=== PATIENT | female | born 1980 | race Caucasian/White ===

== ENCOUNTER 2021-02-19 05:55 | Day surgery (SDC) | payer BC ==
[~2021-02-19] VITALS: Ht 152.4 cm; Wt 90.0 kg
[~2021-02-19 05:55] MED LIST: AMLODIPINE BESYL5 MG PO; CALCOR TABLET1 EACH PO; ESTRACE2 MG PO; FAMOTIDINE20 MG PO; MACRODANTIN50 MG PO; MULTI-VITAMIN1 EACH PO; PROGESTERONE200 MG PO; REMICADE100 MG/10 IV
--- NOTE | 2021-02-19 08:05 | NUR ---
PT IS ALERT, ORIENTED AND HER IS WAITING IN VEHICLE IN PARKING LOT WORKING REMOTELY. PT SEEMS INFORMED, ALL QUESTIONS ASKED ANSWERED. PT DID REQUEST PRAYER, WILL FOLLOW NEEDED
--- NOTE | 2021-02-19 09:15 | NUR ---
02/19/21 0915 Sheets,Ilene 0906 PT ARRIVED TO PACU ON 6L VIA MASK, PT WAKES TO TACTILE STIMULI AND IS REORIENTED TO PACU. VSS. RN ENCOURAGED DEEP BREATHING. PT DENIES PAIN AND NAUSEA. 0912 O2 REMOVED HOB INCREASED. 0914 MD AT BEDSIDE AND PT REPORTS 4/10 CRAMPING PAIN. TOLERBALE AT THIS TIME.
--- NOTE | 2021-02-20 15:32 | PATH ---
[facility] [address] [place], [place] [address] Signed SPECIMEN(S): A ENDOMETRIAL POLYPS SPECIMEN SOURCE: A. ENDOMETRIAL POLYPS CLINICAL HISTORY: Hysteroscopy with resection of endo. polyp. Postmenopausal bleeding; endometrial polyp. FINAL PATHOLOGIC DIAGNOSIS: Endometrium, polyps, resection: - Fragments of proliferative endometrium, some with features of benign endometrial polyp(s). - Fragments of myometrium with no histopathologic abnormality. - Negative for atypical hyperplasia or malignancy. NAL:cml:C2NR MICROSCOPIC EXAMINATION: Histologic sections of all submitted blocks are examined by light microscopy. These findings, together with the gross examination, support the pathologic diagnosis. GROSS DESCRIPTION: The specimen, labeled "KL, endometrial polyps," is received in formalin and consists of irregular shaped, pink-ibarra, membranous tissue fragments that aggregate measure 3.0 x 2.1 x 0.2 cm. Specimen is entirely submitted in cassette (A1). JS (under the direct supervision of a pathologist) The Gross Description was prepared using a voice recognition system. The report was reviewed for accuracy; however, sound-alike word errors, addition and/or deletions may occur. If there is any question about this report, please contact Client Services. PERFORMING LABORATORY: The technical component was performed by [facility], [address] [place] [address] (Ergonomics Consultant: Shelbi Zimmerman MD; CLIA# [id number]). [facility], [address] [address] (CLIA# [id number]). Diagnostician: Megha Mckeon MD PATIENT NAME: JENNA PALACIO PATHOLOGY DATE OF : [birth year] REPORT #: [id number] PHYSICIAN: [facility] PCP: NAMRATA HEATH MD REPORT IS CONFIDENTIAL AND NOT TO BE RELEASED WITHOUT AUTHORIZATION [address] [place], [place] [address] Signed Pathologist Electronically Signed 02/20/2021 Copies: ~ PATIENT NAME: JENNA PALACIO PATHOLOGY DATE OF : [birth year] REPORT #: [id number] PHYSICIAN: [facility] PATHOLOG[facility] PCP: NAMRATA HEATH MD REPORT IS CONFIDENTIAL AND NOT TO BE RELEASED WITHOUT AUTHORIZATION
--- NOTE | 2021-03-08 14:38 | OR ---
[facility] [address] [place], [place] [address] Signed DATE OF OPERATION: 02/19/2021 SURGEON: Anabel Hart MD PREOPERATIVE DIAGNOSIS: Postmenopausal bleeding, endometrial polyps. POSTOPERATIVE DIAGNOSIS: Postmenopausal bleeding, endometrial polyps. PROCEDURE: Hysteroscopy, resection of polyps. ANESTHESIA: MAC. ESTIMATED BLOOD LOSS: Minimal. DRAINS: None. INDICATIONS AND FINDINGS: The patient is a 40-year-old female, 3, para 2, ectopic 1, who has been on hormone replacement after premature menopause. She had been doing well, but recently had been having abnormal bleeding despite the same regimen. Ultrasound revealed probable endometrial polyps. At the time of surgery, exam under anesthesia revealed a normal-size uterus. Cavity sounded to 10 cm. The cavity had polyps of the posterior fundus as well as the left low fundus. DESCRIPTION OF PROCEDURE: The patient was prepped and draped in the dorsal lithotomy position. A weighted speculum was placed and the anterior lip of the cervix was visualized and grasped with a single-tooth tenaculum. The cavity was then sounded to 10 cm. The endocervical canal was then dilated to an #8 dilator. The MyoSure device was then placed and the cavity evaluated. The polyps were identified and the MyoSure Lite introduced. This was used to resect the fundal polyps both posteriorly in the left lower aspect. The remaining cavity appeared normal. Following this, the procedure was complete and the instruments withdrawn. The tenaculum was removed. There was no evidence of any ongoing bleeding from the tenaculum site. The patient was taken to the recovery room in good condition. Electronically Signed By: ANABEL HART MD 03/08/21 1438 PATIENT NAME: JENNA PALACIO OPERATIVE REPORT DATE OF : [birth year] REPORT #: [id number] PHYSICIAN: ANABEL HART MD PCP: NAMRATA BAE MD REPORT IS CONFIDENTIAL AND NOT TO BE RELEASED WITHOUT AUTHORIZATION [address] [place], [place] [address] Signed All sponge and needle counts were correct. Anabel Hart MD PJW/MODL /[id number] cc: Dr. Bae Copies: ~ Electronically Signed By: ANABEL HART MD 03/08/21 1438 PATIENT NAME: JENNA PALACIO OPERATIVE REPORT DATE OF : [birth year] REPORT #: [id number] PHYSICIAN: ANABEL HART MD PCP: NAMRATA BAE MD REPORT IS CONFIDENTIAL AND NOT TO BE RELEASED WITHOUT AUTHORIZATION
== END 2021-02-19 10:00 | disposition home or self-care (01) ==
LOC: DS 05:55
PROVIDERS: ATTEND Obstetrics & Gynecology
PROC: 0UB98ZZ Excision of Uterus, Via Natural or Artificial Opening Endoscopic (ICD-10-PCS; principal; 2021-02-19 08:30)
DX: N84.0 Polyp of corpus uteri (principal); N95.0 Postmenopausal bleeding; I10 Essential (primary) hypertension; K21.9 Gastro-esophageal reflux disease without esophagitis; K50.90 Crohn's disease, unspecified, without complications; E66.9 Obesity, unspecified; Z68.38 Body mass index [BMI] 38.0-38.9, adult; Z20.822 Contact with and (suspected) exposure to COVID-19; Z87.891 Personal history of nicotine dependence
CPT/HCPCS: 00952; C9803; J1885; J2704; J2765; J7121; U0003

== ENCOUNTER 2022-12-02 08:35 | Day surgery (SDC) | payer OTHER ==
[2022-11-23 14:25] VITALS: BP 146/99
[~2022-12-02] VITALS: Ht 152.4 cm; Wt 87.0 kg
--- NOTE | ~2022-12-02 | OR ---
[facility] [address] [place], [place] [address] Draft DATE OF OPERATION: 12/02/2022 SURGEON: Anabel Hart MD PREOPERATIVE DIAGNOSIS: Postmenopausal bleeding. POSTOPERATIVE DIAGNOSIS: Postmenopausal bleeding, pending pathology. PROCEDURE: Hysteroscopy, resection of thickened endometrium. ANESTHESIA: General LMA. ESTIMATED BLOOD LOSS: Minimal. DRAINS: None. INDICATIONS AND FINDINGS: The patient is a 42-year-old female who underwent premature menopause. She has been on hormone replacement therapy and despite several manipulations, she has continued to have quite abnormal bleeding. Ultrasound did show a thickened endometrial stripe. She is now scheduled for hysteroscopy for evaluation. At the time of surgery, exam under anesthesia was normal. The cervix was a little stenotic. The uterus sounded to 11 cm. The majority of the cavity appeared benign, but there was some thickening both anteriorly as well as posteriorly. DESCRIPTION OF PROCEDURE: The patient was prepped and draped in the dorsal lithotomy position. A weighted speculum was placed. The anterior lip of the cervix was visualized and grasped with single-tooth tenaculum. The cavity was sounded to 11 cm. The endocervical canal was then dilated with some difficulty to a #8 dilator. The MyoSure device was then placed. The evaluation of the cavity was done and the MyoSure Lite was then introduced. This was used to resect the thickened areas both anteriorly and posteriorly in the fundus. There were no distinct polypoid fragments. Following this, there was no evidence of any active bleeding. The procedure was terminated. The instruments removed. There was PATIENT NAME: JENNA PALACIO OPERATIVE REPORT DATE OF : [birth year] REPORT #: [id number] PHYSICIAN: ANABEL HART MD PCP: NAMRATA HEATH MD REPORT IS CONFIDENTIAL AND NOT TO BE RELEASED WITHOUT AUTHORIZATION [facility] [address] [place] [id number] Draft some tearing of the anterior cervix from the tenaculum and this was repaired with a figure-of- eight suture of 0 chromic. All sponge and needle counts were correct. She was taken to the recovery room in good condition. MD NICOLLE Daugherty/MOLINA /[id number] Copies: ~ PATIENT NAME: JENNA PALACIO OPERATIVE REPORT DATE OF : [birth year] REPORT #: [id number] PHYSICIAN: ANABEL HART MD PCP: NAMRATA HEATH MD REPORT IS CONFIDENTIAL AND NOT TO BE RELEASED WITHOUT AUTHORIZATION
[~2022-12-02 08:35] MED LIST changes: +AZATHIOPRINE50 MG PO
[2022-12-02 09:04] VITALS: BP 143/89
--- NOTE | 2022-12-02 12:15 | NUR ---
12/02/22 1215 Irina Garsia 1211 PATIENT ARRIVES TO PACU UNRESPONSIVE TO PAIN. ORAL AIRWAY IN PLACE AND RN HOLDING JAW THRUST TO MAINTAIN PATENT AIRWAY. RESP EVEN AND UNLABORED WITH INTERVENTION, MASK AT 10 LITERS.
[2022-12-02 12:50] VITALS: BP 136/74
--- NOTE | 2022-12-02 13:01 | NUR ---
1250: PT ARRIVES BACK TO DS RM 12 VIA STRETCHER FROM PACU AWAKE. PT STATES URGE TO VOID AND ASSISTED TO BATHROOM WITH 2 RN AND FAMILY MEMBER. PT MISSES HAT PLACED IN TOILET AND VOIDS QS LIGHT PINK URINE WITH NO CLOTS PRESENT. PT PROVIDED PERIPAD AND MESH PANTIES. BACK TO DS RM 12 IN STRETCHER WITH AMY HUGGER PLACED ON WARM. CONT PULSE OXIMETER IN PLACE WITH FAMILY AT BEDSIDE AND CALL LIGHT WITHIN REACH. DC CRITERIA EXPLAINED TO PT WITH WATER AT BEDSIDE, PT DENIES ANYTHING TO EAT AT THIS TIME.
[2022-12-02] MEDS ORDERED: MOTRIN IB200 MG PO (13:18)
[2022-12-02] MEDS ORDERED: HYDROCODON-ACE1 EA10 PO (13:19)
[2022-12-02 13:50] VITALS: BP 134/84
--- NOTE | 2022-12-02 14:26 | NUR ---
1350: PT WAKES WHEN THIS RN ENTERS THE ROOM. VSS, RESP EVEN AND UNLABORED ON RA. REPORTS DESIRE TO DC. DENIES PAIN AND NAUSEA. NO DRAINAGE NOTED ON PERIPAD AT THIS TIME. TO DRESS INDEPENDENTLY FOR DC. 1415: SL REMOVED WITH CATH TIP INTACT AND PRESSURE APPLIED TO SITE, WNL. DC INSTRUCTIONS PROVIDED ORDERED. PT VOICES UNDERSTANDING AND DENIES QUESTIONS AND CONCERNS. WHEELED OFF OF WC BY THIS RN. TRANSFERS INTO VEHICLE INDEP AND APPROPRIATELY. NO PHYSICAL S/S OF DISTRESS AT THIS TIME
--- NOTE | 2022-12-04 12:24 | PATH ---
[facility] [address] [place], [place] [address] Signed SPECIMEN(S): A ENDOMETRIAL CURETTINGS SPECIMEN SOURCE: A. ENDOMETRIAL CURETTINGS CLINICAL HISTORY: Postmenopausal bleeding. Hysteroscopy DC. FINAL PATHOLOGIC DIAGNOSIS: Endometrial curettings: - Weakly proliferative endometrium, negative for hyperplasia or atypia. - Fragments of myometrium with intermixed endometrium. (See Comment) COMMENT: The fragments of myometrium with intermixed endometrium raise the consideration of adenomyosis, although definitive diagnosis on a curettage is limited. Clinical correlation is requested. JVR:[facility]:C2NR MICROSCOPIC EXAMINATION: Histologic sections of all submitted blocks are examined by light microscopy. These findings, together with the gross examination, support the pathologic diagnosis. GROSS DESCRIPTION: The specimen, labeled and designated "Raul, endometrial curettings," is received in formalin and consists of multiple fragments of white-ibarra to red-brown soft tissue (2.8 x 1.5 x 0.5 cm in aggregate). The specimen is submitted entirely in cassette (A1). VB (under the direct supervision of a pathologist) The Gross Description was prepared using a voice recognition system. The report was reviewed for accuracy; however, sound-alike word errors, addition and/or deletions may occur. If there is any question about this report, please contact Client Services. PERFORMING LABORATORY: The technical component was performed by [facility], [address] [place] [id number] (CLIA# [id number]). Professional interpretation was performed by [facility], [address] [place] [address], [place] [address] (CLIA#: [id number]). PATIENT NAME: JENNA PALACIO PATHOLOGY DATE OF : [birth year] REPORT #: [id number] PHYSICIAN: [facility] PCP: NAMRATA HEATH MD REPORT IS CONFIDENTIAL AND NOT TO BE RELEASED WITHOUT AUTHORIZATION [facility] [address] [place] [address] Signed Diagnostician: Alonzo Larson MD Pathologist Electronically Signed 12/04/2022 Copies: ~ PATIENT NAME: JENNA PALACIO LAURENT PATHOLOGY DATE OF : [birth year] REPORT #: [id number] PHYSICIAN: [facility] PCP: NAMRATA HEATH MD REPORT IS CONFIDENTIAL AND NOT TO BE RELEASED WITHOUT AUTHORIZATION
--- NOTE | 2022-12-04 15:27 | NUR ---
PT CALLED FOR CALL BACK. PT REPORTS SHE IS "DOING WELL". PT HAS NO QUESTIONS AT THIS TIME.
== END 2022-12-02 14:15 | disposition home or self-care (01) ==
LOC: OPS 08:35 → DS 08:35 → OPS 10:45
PROVIDERS: ATTEND Obstetrics & Gynecology
DX: N95.0 Postmenopausal bleeding (principal); I10 Essential (primary) hypertension; K21.9 Gastro-esophageal reflux disease without esophagitis; Z79.899 Other long term (current) drug therapy
CPT/HCPCS: 00952; J1100; J1790; J1885; J2250; J2405; J2704; J2765; J3010; J7121

== ENCOUNTER 2023-03-03 05:43 | Day surgery (SDC) | payer OTHER ==
[2023-02-22 16:02] VITALS: BP 136/85
[~2023-03-03] VITALS: Ht 152.4 cm; Wt 87.7 kg
--- NOTE | ~2023-03-03 | OR ---
[facility] [address] [place], [place] [address] Draft DATE OF OPERATION: 03/03/2023 SURGEON: Anabel Hart MD SALES REPRESENTATIVE ADVERTISING: Dr. Gutierrez PREOPERATIVE DIAGNOSIS: Persistent postmenopausal bleeding, probable adenomyosis. POSTOPERATIVE DIAGNOSIS: Persistent postmenopausal bleeding, probable adenomyosis pending pathology. PROCEDURES: Total laparoscopic hysterectomy, left salpingectomy, cystoscopy, lysis of adhesions. ANESTHESIA: General ET. ESTIMATED BLOOD LOSS: 25 mL. DRAINS: Pedersen catheter. INDICATIONS AND FINDINGS: The patient has been menopausal since the age of 33. She has been on hormone replacement since that time. She has been on multiple regimens and has continued to have abnormal bleeding despite these changes. She does not tolerate being off her estrogen treatment. Her last hysteroscopy did show tissue consistent with probable adenomyosis and it was felt that hysterectomy was indicated. At the time of surgery, exam under anesthesia was normal. She has undergone prior right salpingo-oophorectomy for an ectopic in the distant past. She did have significant adhesions of the omentum to the anterior abdominal wall. DESCRIPTION OF PROCEDURE: The patient was prepped and draped in the dorsal lithotomy position. A weighted speculum was placed and the anterior lip of the cervix was visualized and grasped with a single-tooth tenaculum. The cavity was sounded to 8 cm. The endocervical canal was then dilated and the VCare cannula inserted and the balloon inflated at the fundus. The PATIENT NAME: JENNA PALACIO OPERATIVE REPORT DATE OF : [birth year] REPORT #: [id number] PHYSICIAN: ANABEL HART MD PCP: NAMRATA HEATH MD REPORT IS CONFIDENTIAL AND NOT TO BE RELEASED WITHOUT AUTHORIZATION [facility] [address] [place], [place] [address] Draft tenaculum and speculum were removed. The cup was fitted over the cervix and a locking cap was fitted into place. Attention was directed above. The infraumbilical area was injected with 0.5% Marcaine plain. An incision was made with a knife and each layer was serially elevated, incised until the fascia was opened and identified. Stay sutures of 0 Vicryl were placed. The peritoneum was opened bluntly and the Joce was placed and the balloon inflated. Placement of the scope confirmed proper positioning. CO2 was then introduced in the abdomen. At this point, it was clear that there was a sheet of omental adhesions primarily on her left side and the mid abdomen. Because of this, secondary ports were placed. There was a clear area on the far left. This area was transilluminated, injected with Marcaine, incision made with a knife and a 5 mm port placed. There was also a clear area on the patient's right side slightly below the level of the umbilicus and laterally. Again, this was transilluminated, injected with the Marcaine, incision made with a knife. A Veress needle was placed followed by the expanding port. Because of the significant adhesions, which were interfering with the ability to completely visualize the entire abdomen, a 4th port was placed above the level of the umbilicus on the patient's right side. This was clearly below the liver edge. This area was transilluminated as well, injected with the Marcaine, incision made with a knife and a 5 mm port placed. This allowed for the scope to be placed on that lower right hand port and the LigaSure [place] device was used to serially coagulate and divide the omental adhesions, which allowed for much clearer view of the pelvis. Following this, the patient's left utero-ovarian pedicle was serially coagulated and divided. The tube was also serially coagulated and divided from the fimbriated end to the cornu and the specimen retrieved. The round ligament was serially coagulated and divided on the patient's left as well. The anterior leaf of the peritoneum was then incised allowing for creation of a partial bladder flap. The peritoneum was taken posteriorly as well. The uterine vessels were skeletonized and coagulated multiple times and divided. Attention was directed to the patient's right. The round ligament was serially coagulated and divided and the anterior leaf of the peritoneum incised allowing for completion of the bladder flap. The peritoneum was taken down posteriorly. The uterine vessels were skeletonized and coagulated multiple times and divided. Further dissection was done circumferentially allowing for the cup to be palpated both posteriorly and anteriorly. The Sonicision device was then used to serially remove the specimen. This was begun at the patient's right uterosacral ligament and taken across posteriorly and wrapped around anteriorly on the patient's left and restarted posteriorly on the right and wrapped around anteriorly. The specimen was retrieved intact vaginally. The vaginal canal was then packed with a glove with a wet lap to allow the pneumoperitoneum to reaccumulate. The pelvis was visualized and there were a few bleeding points at the left cuff, these were controlled with monopolar cautery. The cuff itself was then closed from the right uterosacral ligament to the left, taking care to incorporate the vaginal mucosa both posteriorly and anteriorly. This was done using the Endo Stitch. Following this, the pelvis was again visualized. There was no evidence of any ongoing bleeding. The instruments were removed from the abdomen after PATIENT NAME: JENNA PALACIO LAURENT OPERATIVE REPORT DATE OF : [birth year] REPORT #: [id number] PHYSICIAN: ANABEL HART MD PCP: NAMRATA HEATH MD REPORT IS CONFIDENTIAL AND NOT TO BE RELEASED WITHOUT AUTHORIZATION [address] [place], [place] [address] Draft allowing as much CO2 as possible to escape. The fascial incision of the umbilicus was re-identified and closed with a running suture of 0 Vicryl. The skin incisions were closed with subcuticular sutures of 3-0 Vicryl Rapide. Attention was directed down below and the glove and lap were removed. The Pedersen catheter was removed and cystoscopy was done. She had received IV fluorescein. The bladder was visualized. There was no evidence of any injury to the bladder. Both ureteral orifices were easily seen and almost immediately had spill of clear urine bilaterally. The bladder was then drained and the Pedersen catheter replaced. All sponge and needle counts were correct. She tolerated the procedure well and was taken to the recovery room in good condition. MD NICOLLE Daugherty/MODL /[id number] Copies: ~ PATIENT NAME: JENNA PALACIO OPERATIVE REPORT DATE OF : [birth year] REPORT #: [id number] PHYSICIAN: ANABEL HART MD PCP: NAMRATA HEATH MD REPORT IS CONFIDENTIAL AND NOT TO BE RELEASED WITHOUT AUTHORIZATION
[~2023-03-03 05:43] MED LIST changes: +HYDROCODON-ACE1 EA10 PO; +MOTRIN IB200 MG PO
[2023-03-03 06:06] VITALS: BP 131/91
--- NOTE | 2023-03-03 09:28 | NUR ---
03/03/23 0928 Capri Burch 0920- PT TO PACU IN SF POSITION EYES CLOSED. DOES NOT RESPOND TO VERBAL OR TACTILE STIMULI. BREATHING EASY AND UNLABORED WITH ORAL AIRWAY IN PLACE. SPO2 >95% ON 6 L O2 VIA SIMPLE MASK. REPORT RECEIVED FROM EMPLOYEE RELATIONS DIRECTOR AND CHIEF WHARFINGER. 0924-PT RESPONDS AND OPENS EYES TO VERBAL STIMULI. PT FOLLOWS COMMANDS ORAL AIRWAY REMOVED. BREATHING EASY AND UNLABORED. SPO2 >95% ON 6 L O2 VIA SIMPLE MASK. 0928-PT NODS HEAD "YES" TO QUESTION ABOUT COMFORT. BREATHING EASY AND UNLABORED. SPO2 >95% ON 6 L O2 VIA SIMPLE MASK. STANLEY PAD PLACED.
[2023-03-03 10:20] VITALS: BP 121/71
--- NOTE | 2023-03-03 10:24 | NUR ---
LE 1020: PT IS BACK TO DS FROM PACU. SHE IS DROWSY, BUT EASILY AROUSABLE. SHE REPORTS MINIMAL PAIN. WATER ON BEDSIDE TABLE. CALL LIGHT WITHIN REACH. NO ADDITIONAL NEEDS OR CONCERNS. ANDERSON IS REMOVED. BALLOON DEFLATED OF 8MLS OF NS. ANDERSON BAG HAD APPROXIMATELY 400MLS OF BRIGHT/NEON YELLOW URINE.
--- NOTE | 2023-03-03 10:31 | NUR ---
LE 1030: TRIED CALLED FAMILY TO LET THEM KNOW PT IS BACK IN HER ROOM.
[2023-03-03 11:29] VITALS: BP 135/87
--- NOTE | 2023-03-03 11:31 | NUR ---
PT IS STILL SLEEPY. EASILY AROUSABLE. REPORTS PAIN IS CRAMPING, MINIMAL. SHE FALLS BACK ASLEEP WHEN NOT STIMULATED, WITH SOME SNORING. CALL LIGHT IS WITHIN REACH. NO ADDITIONAL NEEDS AT THIS TIME.
[2023-03-03 12:24] VITALS: BP 113/73
--- NOTE | 2023-03-03 12:26 | NUR ---
PT IS TOLERATING SIPS OF WATER. FAMILY IS AT THE BEDSIDE. CALL LIGHT WITHIN REACH. SHE WOULD LIKE TO TRY APPLE SAUCE. PAIN IS STILL MINIMAL AT A 3/10.
--- NOTE | 2023-03-03 13:13 | NUR ---
LE 1250: PT TURNS MANAGER INTEGRATION LIGHT, SHE WOULD LIKE TO GET UP AND USE THE BATHROOM. SHE IS HELPED UP OOB WITH STAND BY ASSIST. SHE AMBULATES INDEPENDENTLY. SHE IS ABLE TO VOID 400MLS OF NEON YELLOW URINE. LE 1255: PT INDICATES THAT SHE WOULD LIKE TO GO HOME. SHE IS GIVEN VERBAL AND WRITTEN DC INSTRUCTIONS WITH HER AND DAUGHTER PRESENT. THEY VERBALIZE UNDERSTANDING. NO QUESTIONS AT THIS TIME. SHE IS EDUCATED ON HOW TO BEST DRESS HERSELF AND TO OPEN HER CURTAIN WHEN READY. LE 1305: PT IS TAKEN TO PERSONAL VEHICLE VIA . SHE IS ABLE TO TRANSFER HERSELF INDEPENDENTLY WITHOUT ISSUES.
--- NOTE | 2023-03-05 12:20 | PATH ---
[facility] [address] [place], [place] [address] Signed SPECIMEN(S): A UTERUS, CERVIX AND LEFT TUBE SPECIMEN SOURCE: A. UTERUS, CERVIX AND LEFT TUBE CLINICAL HISTORY: Postmenopausal bleeding FINAL PATHOLOGIC DIAGNOSIS: Uterus, cervix, and left tube: - Weakly proliferative endometrium with superficial endometrial adenomyosis. - Negative for hyperplasia or atypia. - Benign myometrial leiomyoma. - Benign endocervix and ectocervix. - Benign oviduct. JVR:kimberly:C2NR MICROSCOPIC EXAMINATION: Histologic sections of all submitted blocks are examined by light microscopy. These findings, together with the gross examination, support the pathologic diagnosis. GROSS DESCRIPTION: The specimen, labeled and designated "Brody Carter, " and designated on the requisition "left tube, uterus, cervix," is received in formalin and consists of a 79 gram uterus and cervix with fallopian tube. The uterus is 3.7 x 3.5 x 9.2 cm (cornu-cornu x anterior-posterior x fundus-ectocervix). The serosal surface is pink and focally congested with adherent membranous tissue. The ectocervical mucosa is pale pink and smooth. Serial sectioning of the cervix fails to demonstrate any gross abnormalities. The triangular endometrial cavity is lined by a pink smooth and focally congested endometrium that has an average thickness of 0.1 cm. Sectioning through the uterus reveals a pink moderately trabeculated myometrium with a one white-ibarra well-circumscribed intramural nodule that is 0.5 cm in greatest dimension. Present on the lower uterine segment is a 0.5 cm defect. The fallopian tube is received in 2 pieces measuring 3.7 x 1.2 cm and 1.4 x 0.7 cm. The serosal surface is violaceous and smooth with multiple paratubal cysts and delicate fimbriae. Cut sections PATIENT NAME: JENNA CARTER PATHOLOGY DATE OF : [birth year] REPORT #: [id number] PHYSICIAN: [facility] PCP: NAMRATA HEATH MD REPORT IS CONFIDENTIAL AND NOT TO BE RELEASED WITHOUT AUTHORIZATION [facility] [address] [place], [place] [address] Signed reveal a pinpoint lumen. Social Welfare Administrator sections are submitted in four cassettes. Cassette Summary: (A1) fallopian tube (A2) cervix (A3) uterine wall (A4) lower uterine segment defect and intramural nodule FB (under the direct supervision of a pathologist) The Gross Description was prepared using a voice recognition system. The report was reviewed for accuracy; however, sound-alike word errors, addition and/or deletions may occur. If there is any question about this report, please contact Client Services. PERFORMING LABORATORY: Technical component was performed by [email or web address], [address] [place] [id number] (CLIA# [id number]). Professional interpretation was performed by [facility] - [facility][1], [address] [place] [address], [place] [address] (CLIA#: [id number]). Diagnostician: Alonzo Larson MD Pathologist Electronically Signed 03/05/2023 Copies: ~ PATIENT NAME: JENNA CARTER LAURENT PATHOLOGY DATE OF : [birth year] REPORT #: [id number] PHYSICIAN: [facility] PCP: NAMRATA HEATH MD REPORT IS CONFIDENTIAL AND NOT TO BE RELEASED WITHOUT AUTHORIZATION
== END 2023-03-03 13:05 | disposition home or self-care (01) ==
LOC: DS 05:43
PROVIDERS: ATTEND Obstetrics & Gynecology
PROC: 0UT94ZZ Resection of Uterus, Percutaneous Endoscopic Approach (ICD-10-PCS; principal; 2023-03-03 07:30)
PROC: 0UT64ZZ Resection of Left Fallopian Tube, Percutaneous Endoscopic Approach (ICD-10-PCS; 2023-03-03 07:30)
DX: N95.0 Postmenopausal bleeding (principal); N73.6 Female pelvic peritoneal adhesions (postinfective); N80.03 Adenomyosis of the uterus; D25.9 Leiomyoma of uterus, unspecified; I10 Essential (primary) hypertension; Z79.899 Other long term (current) drug therapy; Z88.8 Allergy status to other drugs, medicaments and biological substances; Z91.048 Other nonmedicinal substance allergy status; Z79.890 Hormone replacement therapy; Z87.891 Personal history of nicotine dependence
CPT/HCPCS: 00840; 36415; 84703; J0131; J0690; J1100; J1644; J1885; J2001; J2250; J2300; J2405; J2704; J2765; J3490; J7121